=== PATIENT | female | born 2005 | race Caucasian/White ===

== ENCOUNTER 2024-12-30 06:40 | Emergency (ER) | payer BC, SELFPAY ==
[2024-12-30 06:44] VITALS: BP 144/80
--- NOTE | 2024-12-30 06:56 | ED.GENMED ---
History of Present Illness
General
Chief Complaint: Abdominal Symptoms
Time Seen by Provider: 12/30/24 06:56
History of Present Illness
History of Present Illness:
TIME OF INITIAL ENCOUNTER: 7:10 AM
HPI: The patient presents with abrupt onset nausea, vomiting, and diarrhea that started about 7 hours ago. There is some intermittent abdominal cramping. She states that she had a burger to eat last night and noted to be well cooked and did not
have symptoms for several hours after eating that food. She is noted to be tachycardic and tells me that she usually becomes tachycardic when she has a viral syndrome.
EXAM:
GENERAL: Well appearing in no distress
HEENT: Moist oral mucosa
CARDIOVASCULAR: No murmurs, tachycardic heart rate, regular rhythm, No chest wall tenderness
PULMONARY: No respiratory distress, breath sounds are clear and equal
ABDOMEN: Soft with no peritoneal signs, minimal if any diffuse tenderness
NEUROLOGIC: Excellent strength all extremities, no coordination deficits
PSYCHIATRIC: Appropriate mental status, normal insight and judgement
EXTREMITIES: Nontender, no edema, moves all extremities equally
SKIN: No rash, no lesions
NUMBER AND COMPLEXITY OF PROBLEMS ADDRESSED AT THE ENCOUNTER
� Chronic conditions affecting care: Ben's thyroiditis, PCOS
� Acute Exacerbation and/or Progression of Chronic Illness: This is an acute problem
� Differential Diagnosis includes: Viral syndrome, norovirus, foodborne GI illness
AMOUNT AND/OR COMPLEXITY OF DATA TO BE REVIEWED AND ANALYZED
� I performed an independent evaluation of and my interpretation is:
EKG:
CT:
X-rays:
Laboratory Studies: White count and hemoglobin are normal, chemistries unremarkable with normal renal function
Other:
� Review of other/old records: The patient had colonoscopy due to hematochezia in December 2022 which was relatively unremarkable with exception of a lipomatous ileocecal valve which was biopsied to rule out a polyp
� Clinical information was obtained by an independent historian: Spoke to mother at bedside
� Prescriptions/Medications Considered but not given:
� Further testing considered but not performed: No clear indication for CT imaging at this time given the symptoms.
RISK OF COMPLICATIONS AND/OR MORBIDITY OR MORTALITY OF PATIENT MANAGEMENT
� Social determinants of health affecting care: Lives at home
� Discussion with other providers:
� Escalation of care including admission/observation vs risk of discharge considered: The patient arrives tachycardic. She is given IV fluids. She reports only intermittent waves of pain with a relatively nontender abdomen.
ANY OTHER UPDATES:
9:05 AM: I reassessed patient. Blood work unremarkable. She was given IV fluids as well as Pepcid, Toradol, and Zofran. Overall she reports some improvement and heart rate has improved.
9:20 AM: The patient does report some ongoing unwell feeling along with ongoing nausea�will give a second liter of fluid and also add additional Zofran.
Phy Exam
Physical Exam
Physical Exam:
See HPI
Course
Orders/Labs/Results
Orders:
Orders
12/30/24 06:57
0.9% Sodium Chloride 1000 ml [Nss] 1,000 ml IV BOLUS
Ondansetron Injectable [Zofran] 4 mg IV NOW STA
12/30/24 07:16
Famotidine [Pepcid] 20 mg IV NOW STA
Ketorolac [Toradol] 15 mg IV NOW STA
12/30/24 07:21
Basic Metabolic Panel Urgent
Complete Blood Count/With Diff Urgent
12/30/24 07:52
[facility] Urgent
Comment: ADD [place] PER [id number]
Potassium Urgent
12/30/24 09:21
0.9% Sodium Chloride 1000 ml [Nss] 1,000 ml IV BOLUS
Ondansetron Injectable [Zofran] 4 mg IV NOW STA
Abnormal Lab Results
12/30/24
07:21
Absolute Neuts (auto) 8.9 H 10^3/uL
(1.4-6.5)
Absolute Lymphs (auto) 0.4 L 10^3/uL
(1.2-3.4)
Neutrophils % 91.0 H %
(42.2-75.2)
Lymphocytes % 4.0 L %
(20.5-51.1)
Glucose 103 H mg/dl
(70-99)
12/30/24 07:21
12/30/24 07:52
Vital Signs
Initial and Last Documented VS:
Initial Vital Signs
Temp Pulse Resp BP Pulse Ox
37.1 C 128 18 144/80 98
12/30/24 06:44 12/30/24 06:44 12/30/24 06:44 12/30/24 06:44 12/30/24 06:44
Last Documented Vital Signs
Temp Pulse Resp BP Pulse Ox
37.1 C 115 18 101/51 99
12/30/24 06:44 12/30/24 11:25 12/30/24 06:44 12/30/24 11:25 12/30/24 11:25
*Critical Care Note
Total Time (30-74mins, 75-104mins- exclusive of procedures): Not Applicable
ED Attending Note
-
Portions of this chart may have been created with voice recognition software.� Occasional wrong word or��sound alike� substitutions may have occurred due to the inherent limitations of voice recognition software.
Discharge Plan
Departure
Patient Disposition: Home (Routine Discharge)
Date of Disposition: 12/30/24
Time of Disposition: 09:06
Patient with high blood pressure during this ER visit?: Yes
Discharge Problem:
Nausea, vomiting and diarrhea
Instructions: Nausea and Vomiting, Adult (DC)
Prescriptions:
New
ondansetron HCl 4 mg tablet
4 mg PO Q6H PRN (Reason: nausea and vomiting) Qty: 14 0RF
Referrals:
Juan Ugarte CRNP [Family Provider] -
Activity Restrictions/Additional Instructions:
We gave you a liter of fluid. Basic blood work is unremarkable. I did send a prescription for Zofran. Return here if worse or other concerns.
Interventions
Interventions:
*Risk Screen - Suicide Last Done: 12/30/24 06:44
*General Assessment Last Done: 12/30/24 06:44
*Neglect/Abuse Screening Last Done: 12/30/24 06:44
*ED COVID-19 Vaccine History Last Done: 12/30/24 07:27
*Nursing Disposition Last Done: 12/30/24 11:25
CJ-Dmbaqk-Xcqvjgliyr Assessment Last Done: 12/30/24 08:05
Discharge Date and Time
Discharge Date/Time: 12/30/24 11:27
Print Language: MOROCCAN
[2024-12-30 07:00] VITALS: BP 114/74
[2024-12-30 07:27] VITALS: BMI 28.5
[2024-12-30 07:30] LABS: % Basophils 0.3 % (0-2); % Eosinophils 0.1 % (0-6); % Immature Granulocytes 0.2 % (0-0.5); % Monocytes 4.4 % (1.7-9.3); Absolute Lymphocytes 0.4 10^3/uL (1.2-3.4); Absolute Monocytes 0.4 10^3/uL (0.1-0.6); Absolute Neutrophils 8.9 10^3/uL (1.4-6.5); Hematocrit 38.8 % (37.0-47.0); Hemoglobin 12.9 g/dL (12.0-16.0); Mean Corp Hgb Conc. 33.2 g/dL (33.0-37.0); Mean Corpuscular Hgb 27.7 pg (27.0-31.0); Mean Corpuscular Volume 83.4 fL (81.0-99.0); Mean Platelet Volume 8.9 fL (7.4-10.4); Nucleated Red Blood Cells % 0 %; Platelet Count 291 10^3/uL (130-400); Red Blood Cell Count 4.65 10^6/uL (4.20-5.40); Red Cell Dist. Width 12.9 % (11.5-14.5); White Blood Cell Count 9.7 10^3/uL (4.8-10.8)
[2024-12-30] MEDS: TORADOL 15 MG IV (07:44)
[2024-12-30] MEDS: ZOFRAN 4 MG IV ×2 (07:44→09:25)
[2024-12-30] MEDS: NSS 1000 IV ×2 (07:45→09:26)
[2024-12-30] MEDS: PEPCID 20 MG IV (07:45)
[2024-12-30 07:55] LABS: Blood Urea Nitrogen 14 mg/dl (7-17); Calcium 9.6 mg/dl (8.4-10.2); Carbon Dioxide 29 mmol/L (22-30); Chloride 105 mmol/L (98-107); Estimated Creatinine Clearance 122 ml/min; Glucose 103 mg/dl (70-99); Sodium 140 mmol/L (135-145); eGFR > 60.00
[2024-12-30 08:00] VITALS: BP 108/72
[2024-12-30 08:18] LABS: ALT (SGPT) 28 U/L (0-35); AST (SGOT) 25 U/L (14-36); Albumin 4.6 g/dl (3.5-5.0); Alkaline Phosphatase 65 U/L (38-126); Direct Bilirubin 0.2 mg/dl (0.0-0.4); Potassium 3.9 mmol/L (3.5-5.1); Total Bilirubin 0.9 mg/dl (0.2-1.3); Total Protein 7.1 g/dl (6.3-8.2)
[2024-12-30 11:25] VITALS: BP 101/51
== END 2024-12-30 11:27 | disposition home or self-care (01) ==
LOC: EMR 06:40
PROVIDERS: EMERGENCY PHYSICIAN Emergency Medicine
DX: R11.2 Nausea with vomiting, unspecified (principal); R19.7 Diarrhea, unspecified; R10.9 Unspecified abdominal pain
CPT/HCPCS: 96374; 96375; 96376; 96361; 99284; 80048; 80076; 84132; 85025

== ENCOUNTER → 2025-06-15 14:20 | Outpatient (REF) | payer BC, SELFPAY | LOC: HWRAD 14:20 | PROVIDERS: ATTENDING PHYSICIAN Advanced Practice Midwife | DX: R10.2 Pelvic and perineal pain (principal) | CPT/HCPCS: 76830; 76856 ==

== ENCOUNTER → 2025-07-02 13:07 | Outpatient (REF) | payer BC, SELFPAY | LOC: HWRAD 13:07 | PROVIDERS: ATTENDING PHYSICIAN Chiropractor | DX: M54.2 Cervicalgia (principal); M54.50 Low back pain, unspecified; R10.2 Pelvic and perineal pain | CPT/HCPCS: 72050; 72110; 72170 ==